=== PATIENT | female | born 2000 | race Two or more races ===

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

== ENCOUNTER 2021-08-24 14:29 | Emergency (ER) | payer OTHER ==
[2021-08-24 14:41] VITALS: BP 127/77; PULSE 93; TEMP 98.5; BMI 29.2
== END 2021-08-24 16:30 | disposition home or self-care (01) ==
LOC: JER 14:29
DX: B34.9 Viral infection, unspecified (principal)
CPT/HCPCS: 87804; 99283-25; C9803; U0003; U0005

== ENCOUNTER 2021-08-25 07:23 | Emergency (ER) | payer OTHER ==
[2021-08-25 08:30] VITALS: BP 105/71; PULSE 93; TEMP 98; BMI 30.2
== END 2021-08-25 11:11 | disposition home or self-care (01) ==
LOC: JER 07:23
DX: H60.502 Unspecified acute noninfective otitis externa, left ear (principal); R09.81 Nasal congestion
CPT/HCPCS: 87070; 99283-25

== ENCOUNTER 2022-07-29 18:46 | Emergency (ER) | payer OTHER ==
[2022-07-29 19:28] VITALS: BP 118/71; RESP 18; TEMP 102.7; BMI 27.3
[2022-07-29] MEDS ORDERED: SODIUM CHLORIDE 0.9% 500 ML INFUS.BAG IV ONE (20:11)
[2022-07-29] MEDS ORDERED: KETOROLAC TROMETHAMINE 30 MG/1 ML VIAL IVPUSH ONE (20:45)
[2022-07-29] MEDS ORDERED: DEXAMETHASONE SOD PHOSPHATE 10 MG/1 ML VIAL IVPUSH ONE (20:45)
[2022-07-29] MEDS ORDERED: DEXAMETHASONE SOD PHOSPHATE 10 MG/1 ML VIAL ONE (20:49)
[2022-07-29] MEDS ORDERED: KETOROLAC TROMETHAMINE 30 MG/1 ML VIAL ONE (20:49)
[2022-07-29 22:17] VITALS: PULSE 105
== END 2022-07-29 22:17 | disposition home or self-care (01) ==
LOC: JER 18:46
PROC: 3E033GC Introduction of Other Therapeutic Substance into Peripheral Vein, Percutaneous Approach (ICD-10-PCS; principal; 2022-07-29)
DX: J09.X2 Influenza due to identified novel influenza A virus with other respiratory manifestations (principal)
CPT/HCPCS: 0241U-QW; 99284-25; J1100